=== PATIENT | male | born 1940 | race Caucasian/White ===

== ENCOUNTER 2017-10-20 20:17 | Inpatient (IN) | payer OTHER ==
--- NOTE | 2017-10-20 20:21 | EDPHY ---
HPI/HX/ROS/PE/MDM Narrative: CHIEF COMPLAINT: HISTORY OF PRESENT ILLNESS: The patient is a 77 y/o male arriving via EMS complaining of nausea an vomiting [No fever, chills, chest pain, shortness of breath, palpitations, vomiting, diarrhea, urinary complaints, headache, lightheadedness. ] REVIEW OF SYSTEMS: Aside from elements discussed in the HPI, a comprehensive 10-point review of systems was reviewed and is negative. PAST MEDICAL HISTORY: SOCIAL HISTORY: , lives in [place], retired VITAL SIGNS: Reviewed by me GENERAL: Well-developed, well-nourished, resting comfortably in no respiratory distress. HEENT: Atraumatic. Eyes: No icterus, no injection. Mouth: moist mucous membranes. No erythema or lesions. Neck: supple with no adenopathy. LUNGS: Clear to auscultation bilaterally, no wheezes, rhonchi or rales. CARDIAC: Regular rate and rhythm, no rubs, murmurs or gallops. ABDOMEN: Soft, nontender, nondistended, bowel sounds normal. BACK: No CVA tenderness. EXTREMITIES: No trauma. No edema. Range of motion is normal throughout. NEURO: Alert and oriented, grossly nonfocal. SKIN: Warm and dry, no rash. PSYCHIATRIC: Normal mentation, no agitation. Portions of this note were transcribed by a medical dir. I personally performed a history, physical exam, medical decision making, and confirmed accuracy of information the transcribed note. General Time Seen by Provider: 10/20/17 20:20 Allergies/Adverse Reactions: Sulfa (Sulfonamide Antibiotics) Allergy (Verified 06/19/13 19:09) Home Medications: Medication Instructions Recorded Ascorbic Acid [Vitamin C 500 mg 500 mg PO DAILY 06/20/13 (OTC)] Aspirin [Aspirin 325 mg (OTC)] 325 mg PO DAILY 06/20/13 Atorvastatin Calcium [Lipitor 10 10 mg PO DAILY 06/20/13 mg (RX)] Cyanocobalamin [Vitamin B12 1000 2,500 mcg PO DAILY 06/20/13 MCG (OTC)] Donepezil HCl [Aricept 5 MG (RX)] 5 mg PO DAILY 06/20/13 ESOMEPRAZOLE MAG TRIHYDRATE 40 mg PO DAILY 06/20/13 [NEXIUM] Ferrous Sulfate [Ferrous Sulf 325 325 mg PO DAILY 06/20/13 MG (OTC)] Herbals/Supplements -Info Only 1 each PO AD 06/20/13 Pioglitazone HCl [Actos] 45 mg PO DAILY 06/20/13 Ramipril [Altace 2.5mg (RX)] 2.5 mg PO DAILY 06/20/13 Vitamin E [Vitamin E 400 units 400 unit PO DAILY 06/20/13 (OTC)] sitaGLIPtin PHOSPHATE [Januvia 100 100 mg PO DAILY 06/20/13 MG (RX)] Departure - Departure Referrals: Patient,NotPresent [Primary Care Provider] - As per Instructions Report Scribed for: Allison Juárez Report Scribed by: Vero Ojeda Date of Report: 10/20/17 Time of Report: 20:21
[2017-10-20] MEDS ORDERED: NS 1,000 ML IV ONE (20:24)
[2017-10-20] MEDS ORDERED: ONDANSETRON 4 MG/2 ML VIAL IVP ONE (20:24)
--- NOTE | 2017-10-20 20:26 | EDPHY ---
HPI/HX/ROS/PE/MDM Narrative: CHIEF COMPLAINT: Nausea, vomiting, altered mental status HISTORY OF PRESENT ILLNESS: The patient is a 77 y/o male arriving via EMS for nausea, vomiting, and altered mental status. Around 4-5 days ago he began to fall several times. After one of the falls he had an increased urgency to urinate. Denies hitting his head when falling. Yesterday he had an episode of chills and began vomiting. Tonight he had a similar episode and his was unable to get the patient into bed so she called 911. Per his and EMS the patient recently began to hallucinate where he started seeing numbers. This is the first time he has hallucinated. Currently he is feeling good but is complaining of painful urination with blood in his urine. Denies taking Aspirin as prescribed. Denies history of PR or cardiac stents. No chest pain, shortness of breath, palpitations, diarrhea, headache, lightheadedness. REVIEW OF SYSTEMS: Aside from elements discussed in the HPI, a comprehensive 10-point review of systems was reviewed and is negative. PAST MEDICAL HISTORY: Pre-diabetic, GERD, multiple orthopedic surgeries including on his wrist and right leg. Hx of MRSA 6 yr ago. SOCIAL HISTORY: at bedside, live in [place], retired publications manager from [employer] VITAL SIGNS: Temperature: 38.3 degrees, other reviewed by me GENERAL: Ketotic breath, well-developed, well-nourished, resting comfortably in no respiratory distress. HEENT: Atraumatic. Eyes: No icterus, no injection. Mouth: dry mucous membranes. No erythema or lesions. Neck: supple with no adenopathy. LUNGS: Clear to auscultation bilaterally, no wheezes, rhonchi or rales. CARDIAC: Regular rate and rhythm, no rubs, murmurs or gallops. ABDOMEN: Soft, nontender, nondistended, bowel sounds normal. BACK: No CVA tenderness. EXTREMITIES: Chronic deformities of right lower extremity due to surgery with chronic pedal edema. No trauma. Range of motion is normal throughout. NEURO: Alert and oriented, grossly nonfocal. SKIN: Warm and dry, no rash. PSYCHIATRIC: Normal mentation, no agitation. Portions of this note were transcribed by a diploma medical assistant. I personally performed a history, physical exam, medical decision making, and confirmed accuracy of information the transcribed note. ED Course: The patient is a 77 y/o male arriving via EMS for nausea, vomiting, and altered mental status since last night. He also presents with dysuria and hematuria. On exam he has dry mucous membranes. Labs and EKG ordered. 1L IV NS, 1gm PO Tylenol , and 4mg IV Zofran given. I have discussed with the patient and his that the patient will most likely need to be admitted, which they are comfortable with. 2030: 12-LEAD EKG: Please see the full report in [facility]. My interpretation: Normal sinus rhythm with a rate of 88 Laboratory evaluation consistent with urinary tract infection and urosepsis. Patient has a white count of 3.4, urinalysis demonstrating 50-182 red cells and 50-182 white cells per high-power field with positive leukocyte esterase and positive nitrates. Electrolyte evaluation is largely unremarkable. Lactic acid 2.0 Sepsis Evaluation Note: The patient presents to the ED with potential infection identified as urinary tract infection. The patient did have evidence of sepsis with temperature greater than 38 degree Celsius, and WBC less than 3000. Patient did not have evidence of severe sepsis. He received 1 g of ceftriaxone in the emergency department. MDM: Differential diagnosis for fever in adults was considered including but not limited to pneumonia, urinary tract infection, viral syndrome, and influenza. - Data Points Laboratory Results: Laboratory Results 10/20/17 20:20 10/20/17 20:20 10/20/17 10/20/17 10/20/17 20:38 20:26 20:20 WBC RBC Hgb Hct MCV MCH MCHC RDW Plt Count MPV Neut % (Auto) Lymph % (Auto) [place] % (Auto) Eos % (Auto) Baso % (Auto) Nucleat RBC Rel Count Absolute Neuts (auto) Absolute Lymphs (auto) Absolute Monos (auto) Absolute Eos (auto) Absolute Basos (auto) Absolute Nucleated RBC Immature Gran % Seg Neutrophils % Band Neutrophils % Lymphocytes % Monocytes % Eosinophils % Immature Gran # Absolute Seg Neuts Absolute Band Neuts Absolute Lymphocytes Absolute Monocytes Absolute Eosinophils Platelet Estimate Giant Platelets PT INR APTT VBG Lactic Acid 2.0 mmol/L mmol/L (0.7-2.1) Sodium 143 mEq/L mEq/L (135-145) Potassium 3.5 mEq/L mEq/L (3.5-5.2) Chloride 103 mEq/L mEq/L (97-110) Carbon Dioxide 25 mEq/l mEq/l (22-31) Anion Gap 15 mEq/L mEq/L (8-16) BUN 22 mg/dL mg/dL (7-23) Creatinine 1.1 mg/dL mg/dL (0.7-1.3) Estimated GFR > 60 Glucose 185 mg/dL H mg/dL (70-100) Calcium 9.4 mg/dL mg/dL (8.5-10.4) Total Bilirubin 1.9 mg/dL H mg/dL (0.1-1.4) Conjugated Bilirubin 0.8 mg/dL H mg/dL (0.0-0.5) Unconjugated Bilirubin 1.1 mg/dL mg/dL (0.0-1.1) AST 27 IU/L IU/L (17-59) ALT 32 IU/L IU/L (21-72) Alkaline Phosphatase 104 IU/L IU/L (38-126) Total Protein 6.0 g/dL L g/dL (6.3-8.2) Albumin 3.8 g/dL g/dL (3.5-5.0) Lipase 57 IU/L IU/L (23-300) Urine Color YELLOW Urine Appearance HAZY Urine pH 5.0 (5.0-7.5) Ur Specific [place] 1.012 (1.002-1.030) Urine Protein 1+ H (NEGATIVE) Urine Ketones NEGATIVE (NEGATIVE) Urine Blood 3+ H (NEGATIVE) Urine Nitrate POSITIVE H (NEGATIVE) Urine Bilirubin NEGATIVE (NEGATIVE) Urine Urobilinogen 4.0 EU H EU (0.2-1.0) Ur Leukocyte Esterase 1+ H (NEGATIVE) Urine RBC 50-182 /hpf H /hpf (0-3) Urine WBC 50-182 /hpf H /hpf (0-3) Ur Epithelial Cells TRACE /lpf /lpf (NONE-1+) Urine Bacteria 2+ /hpf H /hpf (NONE SEEN) Urine Mucus TRACE /lpf /lpf (NONE-1+) Urine Glucose NEGATIVE (NEGATIVE) 10/20/17 10/20/17 20:20 20:20 WBC 3.46 10^3/uL L 10^3/uL (3.80-9.50) RBC 4.95 10^6/uL 10^6/uL (4.40-6.38) Hgb 15.0 g/dL g/dL (13.7-17.5) Hct 41.9 % % (40.0-51.0) MCV 84.6 fL fL (81.5-99.8) MCH 30.3 pg pg (27.9-34.1) MCHC 35.8 g/dL g/dL (32.4-36.7) RDW 13.6 % % (11.5-15.2) Plt Count 138 10^3/uL L 10^3/uL (150-400) MPV 9.8 fL fL (8.7-11.7) Neut % (Auto) 96.2 % H % (39.3-74.2) Lymph % (Auto) 2.0 % L % (15.0-45.0) [place] % (Auto) 0.0 % L % (4.5-13.0) Eos % (Auto) 0.6 % % (0.6-7.6) Baso % (Auto) 0.6 % % (0.3-1.7) Nucleat RBC Rel Count 0.0 % % (0.0-0.2) Absolute Neuts (auto) 3.33 10^3/uL 10^3/uL (1.70-6.50) Absolute Lymphs (auto) 0.07 10^3/uL L 10^3/uL (1.00-3.00) Absolute Monos (auto) 0.00 10^3/uL L 10^3/uL (0.30-0.80) Absolute Eos (auto) 0.02 10^3/uL L 10^3/uL (0.03-0.40) Absolute Basos (auto) 0.02 10^3/uL 10^3/uL (0.02-0.10) Absolute Nucleated RBC 0.00 10^3/uL 10^3/uL (0-0.01) Immature Gran % 0.6 % % (0.0-1.1) Seg Neutrophils % 44 % % Band Neutrophils % 42 % % Lymphocytes % 6 % % Monocytes % 7 % % Eosinophils % 1 % % Immature Gran # 0.02 10^3/uL 10^3/uL (0.00-0.10) Absolute Seg Neuts 1.52 10^/uL L 10^/uL (1.70-6.50) Absolute Band Neuts 1.45 10^3/uL H 10^3/uL (0.00-0.70) Absolute Lymphocytes 0.21 10^3/uL L 10^3/uL (1.00-3.00) Absolute Monocytes 0.24 10^3/uL L 10^3/uL (0.30-0.80) Absolute Eosinophils 0.03 10^3/uL 10^3/uL (0.03-0.40) Platelet Estimate ADEQUATE (ADEQ) Giant Platelets PRESENT H PT 14.2 SEC SEC (12.0-15.0) INR 1.08 (0.83-1.16) APTT 21.3 SEC L SEC (23.0-38.0) VBG Lactic Acid Sodium Potassium Chloride Carbon Dioxide Anion Gap BUN Creatinine Estimated GFR Glucose Calcium Total Bilirubin Conjugated Bilirubin Unconjugated Bilirubin AST ALT Alkaline Phosphatase Total Protein Albumin Lipase Urine Color Urine Appearance Urine pH Ur Specific [place] Urine Protein Urine Ketones Urine Blood Urine Nitrate Urine Bilirubin Urine Urobilinogen Ur Leukocyte Esterase Urine RBC Urine WBC Ur Epithelial Cells Urine Bacteria Urine Mucus Urine Glucose Medications Given: Sodium Chloride (Ns) 2,200 mls @ 366.6666 mls/hr 30 ml/kg infuse over 6 hr ( 2200 ml) IV EDNOW ONE PRN Reason: Protocol Stop: 10/21/17 02:48 Last Admin: 10/20/17 20:59 Dose: 2,200 mls Discontinued Medications Acetaminophen (Tylenol) 1,000 mg PO EDNOW ONE Stop: 10/20/17 20:36 Last Admin: 10/20/17 20:38 Dose: 1,000 mg Sodium Chloride (Ns) 1,000 mls @ 0 mls/hr IV ONCE ONE; Wide Open PRN Reason: Protocol Stop: 10/20/17 20:25 Last Admin: 10/20/17 20:35 Dose: 1,000 mls Ceftriaxone Sodium/Dextrose (Rocephin 1 Gm (Premix)) 50 mls @ 100 mls/hr IV EDNOW ONE PRN Reason: Protocol Stop: 10/20/17 21:18 Last Admin: 10/20/17 21:00 Dose: 50 mls Ondansetron HCl (Zofran) 4 mg IVP EDNOW ONE Stop: 10/20/17 20:25 Last Admin: 10/20/17 20:36 Dose: 4 mg General Time Seen by Provider: 10/20/17 20:20 Initial Vital Signs: Initial Vital Signs Temperature (C) 38.3 C 10/20/17 20:28 Heart Rate 89 10/20/17 20:28 Respiratory Rate 16 10/20/17 20:28 Blood Pressure 122/77 H 10/20/17 20:28 O2 Sat (%) 87 L 10/20/17 20:28 O2 Delivery Mode Room Air O2 (L/minute) 2 Allergies/Adverse Reactions: Sulfa (Sulfonamide Antibiotics) Allergy (Verified 06/19/13 19:09) Home Medications: Medication Instructions Recorded Ascorbic Acid [Vitamin C 500 mg 500 mg PO DAILY 06/20/13 (OTC)] Aspirin [Aspirin 325 mg (OTC)] 325 mg PO DAILY 06/20/13 Atorvastatin Calcium [Lipitor 10 10 mg PO DAILY 06/20/13 mg (RX)] Cyanocobalamin [Vitamin B12 1000 2,500 mcg PO DAILY 06/20/13 MCG (OTC)] Donepezil HCl [Aricept 5 MG (RX)] 5 mg PO DAILY 06/20/13 ESOMEPRAZOLE MAG TRIHYDRATE 40 mg PO DAILY 06/20/13 [NEXIUM] Ferrous Sulfate [Ferrous Sulf 325 325 mg PO DAILY 06/20/13 MG (OTC)] Herbals/Supplements -Info Only 1 each PO AD 06/20/13 Pioglitazone HCl [Actos] 45 mg PO DAILY 06/20/13 Ramipril [Altace 2.5mg (RX)] 2.5 mg PO DAILY 06/20/13 Vitamin E [Vitamin E 400 units 400 unit PO DAILY 06/20/13 (OTC)] sitaGLIPtin PHOSPHATE [Januvia 100 100 mg PO DAILY 06/20/13 MG (RX)] Departure - Departure Disposition: [facility] In[facility] Acute Clinical Impression: UTI (urinary tract infection) Qualifiers: Urinary tract infection type: site unspecified Hematuria presence: with hematuria Qualified Code(s): N39.0 - Urinary tract infection, site not specified Altered mental status Qualifiers: Altered mental status type: unspecified Qualified Code(s): R41.82 - Altered mental status, unspecified Condition: Fair Report Scribed for: Allison Juárez Report Scribed by: Vero Ojeda Date of Report: 10/20/17 Time of Report: 20:26
[2017-10-20 20:32] LABS: PLATELET COUNT 138 10^3/uL (150-400)
--- NOTE | 2017-10-20 20:33 | CPEKG ---
Heart Rate: 88 RR Interval: 682 P-R Interval: 144 QRSD Interval: 80 QT Interval: 328 QTC Interval: 397 P Mayo: 78 QRS Mayo: 3 T Wave Mayo: 37 EKG Severity - OTHERWISE NORMAL ECG - EKG Impression: SINUS RHYTHM EKG Impression: ATRIAL PREMATURE COMPLEX Electronically Signed By: Rajinder Thompson 20-Oct-2017 21:13:07
[2017-10-20] MEDS ORDERED: ACETAMINOPHEN 500 MG TAB PO ONE (20:35)
[2017-10-20 20:38] LABS: INR 1.08 (0.83-1.16); PROTIME(PATIENT) 14.2 SEC (12.0-15.0)
[2017-10-20] MEDS ORDERED: NS 2,200 ML IV ONE (20:49)
[2017-10-20] MEDS ORDERED: ONDANSETRON 4 MG/2 ML VIAL IVP PRN (23:05)
[2017-10-20] MEDS ORDERED: ACETAMINOPHEN 325 MG TAB PO PRN (23:05)
[2017-10-20] MEDS ORDERED: NS 1,000 ML IV SCH (23:15)
[2017-10-21 05:26] LABS: PLATELET COUNT 114 10^3/uL (150-400)
--- NOTE | 2017-10-21 06:04 | GHP ---
[f rep st] HISTORY AND PHYSICAL DATE OF ADMISSION: 10/20/2017 SOURCE: Patient provides history. He was initially encephalopathic and does not recall too much of events leading up to his hospital stay. EMR was reviewed and case was discussed with albert garay. CHIEF COMPLAINT: Confusion, altered mental status. HISTORY OF PRESENT ILLNESS: This is a very pleasant 77-year-old gentleman with past medical history significant for prediabetes, hyperlipidemia, GERD, some memory deficits, MRSA in 2010 and history of coronary artery disease status post stenting, who presents to the emergency department today with acu te onset of confusion. The patient was reported to have a fall approximately 4-5 days ago where he d id not have any head injury or loss of consciousness. The patient has since that time complained of some urgency along with dysuria and possibly some hematuria. At time of my interview patient denies, however. He does endorse some chills and some vomiting. He was also noted to have hallucinations p rior to his arrival in the emergency department. At time of my interview, patient without any active complaints. He was resting quietly and was desirous to go back to bed. REVIEW OF SYSTEMS: GENERAL: Patient denies any fevers. Positive chills today. SKIN: No rashes or sores. ENT: No congestion or sore throat. EYES: Patient denies any acute changes in vision or oc ular pain. CV: Denies any chest pain or palpitations. RESPIRATORY: No shortness of breath or coug h. GI: Positive for nausea and vomiting. No hematemesis. Patient denies any abdominal pain. No d iarrhea, melena, or hematochezia. GI: See HPI. MUSCULOSKELETAL: Patient denies any myalgias or ac carlos joint pain. NEURO: Patient denies any headache. No numbness, tingling, or focal deficits at th is time. PSYCH: Patient's thought process, content and questions at time of my interview are appropr iate. He is awake, alert, and oriented x4. ALLERGIES: Sulfa. HOME MEDICATIONS: Meclizine 25 mg p.o. daily, vitamin D3 5000 units p.o. daily, magnesium oxide 400 mg p.o. b.i.d., multivitamin 1 tab p.o. daily, Trulicity 1.5 subcu on Tuesday, metformin 1000 mg p.o. b.i.d., Zetia 110 mg p.o. daily, donepezil 5 mg p.o. daily, ferrous sulfate 325 mg p.o. daily, esomep razole 40 mg p.o. daily, vitamin B12 25 mcg p.o. daily, atorvastatin 10 mg p.o. daily, Januvia 100 mg p.o. daily, ramipril 2.5 mg p.o. daily, pioglitazone 45 mg p.o. daily, ascorbic acid 500 mg p.o. cat ly. PAST MEDICAL HISTORY: Significant for prediabetes, hypertension, hyperlipidemia, GERD, dementia, MRS A in 2010, CAD with history of stenting. PAST SURGICAL HISTORY: Significant for orthopedic surgeries, multiple including wrist and leg, cardi ac cath with stents. FAMILY HISTORY: Negative for CAD, hypertension, or urologic issues. SOCIAL HISTORY: Patient is . He is retired from [employer]. He does not smoke, drink, or do drugs. CODE STATUS: Full. PHYSICAL EXAM: VITAL SIGNS: Upon arrival to the emergency department, blood pressure 122/77, heart rate 89, respiratory rate 16, O2 saturation 87% on room air with temperature 38.3. Vitals currently, blood pressure is 91/54, heart rate 66, respiratory rate 16, O2 saturation 95% on 2 L by nasal cannu la, temperature 36.7. GENERAL: No acute distress. Pleasant, elderly, frail gentleman is lying quie tly in bed, interactive and agreeable. HEAD: Normocephalic, atraumatic. EYES: Extraocular muscles are intact. Pupils equal, round, react to light bilaterally and symmetric. No scleral icterus or c onjunctival injection. ENT: Mucous membranes are slightly tacky. No oropharyngeal erythema or exud ates. NECK: Supple. Trachea midline. CV: Regular rate and rhythm. Slightly bradycardic, limited heart sounds, but otherwise regular. RESPIRATORY: Lungs clear to auscultation bilaterally. No whe ezes, rales, or rhonchi. ABDOMEN: Positive bowel sounds. Soft, nontender to palpation. No rebound , guarding or masses. : No suprapubic tenderness to palpation. No Sosa catheter in place. MUSC ULOSKELETAL: Strength grossly intact. Moves all extremities while lying in bed. NEURO: Grossly no nfocal. No facial drooping. Cranial nerves intact. The patient moves all extremities. PSYCH: Tho ught process, content and questions at this time are appropriate. Patient is currently awake, alert, and oriented x4. Although he cannot recall the events leading up to the hospital stay, he is aware of why he is here. LABORATORY STUDIES: WBC 3.46, H and H 15.0 and 41.9, MCV 84.6, platelet count is 138, no bands. Pat ient with left shift and neutrophil count to 96.2. PT is 14.2, INR 1.08, PTT is 21.3. VBG: Lactic acid 2.0. Repeat is 1.3. Sodium is 143, potassium 3.5, chloride 103, CO2 is 25, anion gap 15, BUN 2 2, creatinine is 1.1, GFR greater than 60, glucose 185, calcium 9.4, total bilirubin is 1.9, conjugat ed 0.8, ALT 32, AST is 29, alk phos 104, total protein 6.0, albumin is 3.8, and lipase is 57. UA: Specific gravity of 1.012, with a pH of 5.0, protein 1+, ketones negative, blood 3+, positive ni trites, negative bilirubin, 4.0 urobilinogen, leuk esterase 1+, RBCs is 50-182. WBCs 50-182, uroepit helial trace cells, bacteria 2+, mucus trace, and glucose is negative. Chest x-ray: Image reviewed myself. Left lower lobe patchy infiltrate. Heart size, pulmonary vascu lature normal. No adenopathy or mass lesion. No pleural effusion. Bones are unremarkable for age. EKG reviewed myself showing sinus rhythm in the 80s. No acute ST changes. Q-wave in leads III, mini mal ST depression in V4. PACs present. QTc is 397. ASSESSMENT AND PLAN: This is a pleasant 77-year-old gentleman who presents to the emergency departme with acute confusion. 1. Infectious encephalopathy related to patient's urinary tract infection. He is meeting sepsis cri teria with tachycardia, fever, leukopenia and patient also initially with some hypoxia that appears t o have resolved. Blood pressure is also soft. Continue with IV fluids. Blood cultures are pending. Patient has been started on Rocephin, which we will plan to continue pending urine culture. 2. Urinary tract infection as above. 3. Sepsis. Patient without severe sepsis or septic shock. Blood pressures are slightly down trendi ng. Will plan to continue to monitor. Patient is asymptomatic. 4. Thrombocytopenia, likely slightly decreased in the setting of acute illness. 5. Lactic acidosis minimally elevated at 2.0, is now down trended to 1.3 following fluids. 6. Diabetes type 2 with elevated blood sugars at 180s at this time. Will hold off on his home medic ations and place patient on low-dose sliding scale. 7. Hyperlipidemia. Resume patient's statin. 8. Gastroesophageal reflux disease. Continue proton pump inhibitors. 9. History of dementia. Patient currently oriented x4. Will plan to resume his home donepezil. 10. History of coronary artery disease and stenting. Continue CARLOTA and statin. 11. Fluid, electrolyte, nutrition. Intravenous fluids for supportive care at this time. Advance di et as tolerated. Electrolyte monitoring replacement if needed. 12. Prophylaxis. Sequential compression devices and Lovenox. 13. Cor status is full. DISPOSITION: Patient has been admitted to inpatient status on the medical floor for potential of pat iealexandru's sepsis converting into severe sepsis or septic shock. His lactate is downtrending. He is rec eiving IV fluids, he got antibiotics, cultures, which are all pending. We will plan to continue his Rocephin. Anticipate greater than 2 midnight stay. /[id number]/MODL
--- NOTE | 2017-10-21 07:58 | PDMN ---
Medical Necessity Medical necessity: Pt meets IP criteria per MD; est los >2 mn for eval/tx of potential severe sepsis/septic shock r/t UTI; admit for further workup/ monitoring, IVFs & IV abx; hx dementia, CAD w/stenting, diabetes, HTN; per H&P & order 10/20/17
--- NOTE | 2017-10-21 09:08 | HOSPPROG ---
Hospitalist Progress Note Assessment/Plan: Sepsis secondary to E coli bacteremia from UTI source - Initial sepsis criteria fever, tachycardia, wbc <4. WBC's up to 13 today, likely mounting a better immune response. BP a bit soft, but he notes baseline SBP is ~100's. -E coli on BCx's, await final ID and sensitivities -Cont IV Ceftriaxone -Cont IVF's, monitor BP closely -ID will consult Acute encephalopathy - seems back to baseline Dementia - cont Aricept DM - bg's 100's. Hold oral hypoglycemics, SSI for now Hypertension - hold ramipril given low BP's, resume as clinically indicated CAD with h/o stents - no CP, stable. Cont statin, consider addition of ASA 81 mg, unclear why he isn't on ASA. Gerd - cont PPI Full code DVT PPLX - Lovenox Dispo - cont inpt Subjective: Pt feels much better this am. Denies fevers/chills/rigors. Eating and drinking. No CP or SOB. Still noting some dysuria. No abdominal pain, N/ V. Objective: Vital Signs Temp Pulse Resp BP Pulse Ox 36.7 C 62 16 92/59 L 96 10/21/17 07:56 10/21/17 07:56 10/21/17 07:56 10/21/17 08:49 10/21/17 07:56 Laboratory Results 10/21/17 04:36 10/21/17 04:36 10/20/17 10/21/17 10/22/17 05:59 05:59 05:59 Intake Total 2350 Output Total 200 Balance 2150 PT 14.2 SEC (12.0-15.0) 10/20/17 20:20 INR 1.08 (0.83-1.16) 10/20/17 20:20 - Physical Exam Constitutional: no apparent distress Eyes: PERRL Ears, Nose, Mouth, Throat: moist mucous membranes Cardiovascular: regular rate and rhythym Respiratory: no respiratory distress, clear to auscultation Gastrointestinal: normoactive bowel sounds, soft, non-tender abdomen Skin: warm Musculoskeletal: full muscle strength Neurologic: AAOx3 Psychiatric: interacting appropriately ICD10 Worksheet Patient Problems: Problems Problem Status Onset Altered mental status Acute UTI (urinary tract infection) Acute Compression fracture of T12 vertebra Acute Low back pain Acute
[2017-10-21] MEDS: ENOXAPARIN 40 MG/0.4 ML SYR SC SCH (09:16)
[2017-10-21] MEDS ORDERED: D50W 25 GM/50 ML SYR IVP PRN (09:20)
[2017-10-21] MEDS ORDERED: MAGNESIUM SULF 1 GM/DEXTROSE 100 ML IV ONE (09:24)
[2017-10-21] MEDS: DONEPEZIL HCL 5 MG TAB PO SCH (11:03)
[2017-10-21] MEDS: ATORVASTATIN CALCIUM 10 MG TAB PO SCH (11:03)
[2017-10-21] MEDS: CYANO/VITAMIN B12 1000 MCG TAB PO SCH (11:03)
[2017-10-21] MEDS: CHOLECALCIFEROL VIT D3 1,000 UNITS TAB PO SCH (11:04)
[2017-10-21] MEDS: EZETIMIBE 10 MG TAB PO SCH (11:19)
[2017-10-21] MEDS: FERROUS SULFATE 325 MG TAB PO SCH (11:19)
[2017-10-21] MEDS: cefTRIAXone 2 GM in STERILE WATER INJ 20 ML IV SCH (12:28)
--- NOTE | 2017-10-21 12:41 | GCON ---
[f rep st] CONSULTATION INFECTIOUS DISEASE CONSULTATION DATE OF CONSULTATION: 10/21/2017 REFERRING PHYSICIAN: Mallory Moore MD REASON FOR CONSULTATION: Sepsis due to E coli bacteremia. HISTORY OF PRESENT ILLNESS: Patient is a 77-year-old male with a past medical history of prediabetes , who I am asked to see in consultation for sepsis due to E coli bacteremia. Patient describes havin g a fall preceding his admission, associated with a sense of dizziness. He described the fall occurr ing at nighttime in his bedroom and breaking his closet door. Subsequently, he noted dysuria, urgenc y, and frequency. This was followed by confusion. He did not note any preceding fevers or chills. Patient describes having episodic vomiting on a weekly basis for the last 2 months. He also does deon cribes intermittent diarrhea but not on a daily basis. He denies suprapubic pain or flank pain. The re is no prior history of kidney stones. At the time of presentation, patient had bandemia with a te mperature of 39.3 noted. Blood cultures were obtained and 2 of 2 sets are showing growth of E coli. Patient has been treated with IV ceftriaxone. Given the above findings, I am now asked to assist in his ongoing management. PAST MEDICAL HISTORY: Septic prepatellar bursitis due to MRSA in 2007, prediabetes, hypertension, hy perlipidemia, gastroesophageal reflux, dementia, coronary artery disease with prior stenting. PAST SURGICAL HISTORY: Multiple orthopedic surgeries. CURRENT MEDICATIONS: Ceftriaxone x1 in the emergency department, Lipitor 10 mg p.o. daily, vitamin D 5000 units p.o. daily, Aricept 5 mg p.o. daily, Lovenox 40 mg subcu daily, Zetia 10 mg p.o. daily, f errous sulfate 325 mg p.o. daily, Protonix 40 mg p.o. daily. ALLERGIES: Sulfonamides with unclear reaction. SOCIAL HISTORY: Patient does not smoke or drink alcohol. Pet dog at home. No recent travel. FAMILY HISTORY: Mother of heart problem, not further clarified. REVIEW OF SYSTEMS: Outside that noted in the HPI, remainder of 10-system review is unremarkable. PHYSICAL EXAMINATION: VITAL SIGNS: Temperature maximum 39.3, temperature current 36.7, heart rate 6 2, respiratory rate 16, blood pressure 92/59, oxygen saturation 96% on 2 L. GENERAL: Patient is wel l nourished, well developed, in no acute distress. He appears nontoxic. HEENT: There is no scleral icterus, conjunctival injection, or conjunctival petechiae. Oropharynx shows moist mucous membranes . There is no nasal discharge. There is no tenderness over the sinuses. NECK: Supple without palp able lymphadenopathy or thyromegaly. CHEST: Clear to auscultation bilaterally without adventitious sounds. The respiratory effort is normal. CARDIOVASCULAR: Regular rate and rhythm without murmurs, gallops, rubs. ABDOMEN: Soft, nontender, nondistended. There is no palpable organomegaly. Bowel sounds are present. BACK: There is no CVA tenderness. MUSCULOSKELETAL: There is 1+ ankle edema on the right. There is no cyanosis or clubbing. SKIN: No rashes noted. No stigmata of endocarditis. Warm and dry to touch. : There is no testicular tenderness. LYMPHATICS: No cervical or suprac lavicular nodes palpable. NEUROLOGIC: Patient is alert and interacts appropriately with examiner. Cranial nerves 2-12 are grossly intact. Sensation is grossly intact. Muscle tone and bulk are sweetie l. LABORATORY DATA: White blood cell count 13.3, hematocrit 34.2, platelets 114, neutrophils 55%, bands 40%. Serum creatinine 0.9, serum bicarbonate 24, AST 27, ALT 32, bilirubin 1.9, alkaline phosphatas e 104. INR is 1.08. Venous lactate 1.3. Urinalysis shows 50-182 red blood cells and white blood cells with 2+ bacteria. Blood cultures x2 se ts showing E coli. Chest x-ray shows possible small left lower lobe infiltrate. IMPRESSION: Sepsis due to Escherichia coli bacteremia: Based on presentation, urinary symptoms, and urinalysis findings, this is likely of urinary etiology. No significant risk factors for extended s pectrum beta-lactamases present at time of presentation. Patient is clinically improved with antibio tic therapy. Suspect increasing white blood cell count is a positive finding, given relative leukope han at time of presentation. RECOMMENDATIONS: 1. Agree with continued ceftriaxone. 2. Follow up susceptibility as available. 3. Follow clinical response to above measures. Thank you for this consultation. We will continue to follow patient with you. /[id number]/MODL
[2017-10-21] MEDS: INSULIN LISPRO 100 UNIT/ML SC SCH ×3 (13:48→21:59)
--- NOTE | 2017-10-21 14:38 | ASMTCMCOM ---
CM Note CM Note Notes: Spoke w/RN, pt lives with his , he has mild dementia. Has otherwise been independent with ADLs but presently has vertigo. RN to put in PT JEROME payan w/f. DC Plan: TBD Date Signed: 10/21/2017 02:37 PM Electronically Signed By:Antoinette Valentin RN
[2017-10-21] MEDS: MAGNESIUM OXIDE 400 MG TAB PO SCH (21:48)
[2017-10-21] MEDS: POTASSIUM Cl (KCl) 20 MEQ in 1/2 NS 1,000 ML IV SCH (23:11)
[2017-10-22 05:24] LABS: PLATELET COUNT 114 10^3/uL (150-400)
[2017-10-22] MEDS: DONEPEZIL HCL 5 MG TAB PO SCH (08:12)
[2017-10-22] MEDS: EZETIMIBE 10 MG TAB PO SCH (08:13)
[2017-10-22] MEDS: MAGNESIUM OXIDE 400 MG TAB PO SCH ×2 (08:13→20:38)
[2017-10-22] MEDS: FERROUS SULFATE 325 MG TAB PO SCH (08:13)
[2017-10-22] MEDS: ATORVASTATIN CALCIUM 10 MG TAB PO SCH (08:13)
[2017-10-22] MEDS: PANTOPRAZOLE SODIUM 40 MG TAB PO SCH (08:13)
[2017-10-22] MEDS: CYANO/VITAMIN B12 1000 MCG TAB PO SCH (08:14)
[2017-10-22] MEDS: ENOXAPARIN 40 MG/0.4 ML SYR SC SCH (08:14)
[2017-10-22] MEDS: CHOLECALCIFEROL VIT D3 1,000 UNITS TAB PO SCH (08:14)
[2017-10-22] MEDS: INSULIN LISPRO 100 UNIT/ML SC SCH ×4 (08:21→20:39)
[2017-10-22] MEDS: cefTRIAXone 2 GM in STERILE WATER INJ 20 ML IV SCH (08:47)
[2017-10-22] MEDS: POTASSIUM Cl (KCl) 20 MEQ in 1/2 NS 1,000 ML IV SCH (09:30)
[2017-10-22] MEDS ORDERED: NS 1,000 ML IV SCH (09:45)
--- NOTE | 2017-10-22 10:51 | PCMIDPN ---
Assessment/Plan: Assessment/Plan: * Sepsis due to E coli bacteremia of urinary etiology: Significant clinical improvement. Susceptibility profile of E coli will not be available until tomorrow. Will continue ceftriaxone with hopes to transition to oral fluoroquinolone if isolate is susceptible tomorrow. Clinical findings and plan discussed with patient, family and Dr. Lima. Time spent, 25 min, of which greater than half was spent in education/counseling /coordination of care related to E coli bacteremia. 10/22/17 10:48 Subjective: Patient feels much better. Urinary symptoms have resolved. Tolerating oral intake well. Objective: Vital Signs Temp Pulse Resp BP Pulse Ox 36.8 C 65 16 107/66 92 10/22/17 07:05 10/22/17 09:02 10/22/17 03:12 10/22/17 07:05 10/22/17 09:02 Laboratory Results 10/22/17 04:36 10/22/17 04:36 10/21/17 10/22/17 10/23/17 05:59 05:59 05:59 Intake Total 2350 2704 Output Total 200 850 150 Balance 2150 1854 -150 Ceftriaxone # 3 Blood cultures 2/2 E coli with susceptibility profile pending - Physical Exam General Appearance: alert, no apparent distress EENT: No scleral icterus, No thrush Respiratory: lungs clear, No respiratory distress Cardiac/Chest: regular rate, rhythm Abdomen: non-tender, No distended Back: No CVA tenderness ICD10 Worksheet Patient Problems: Problems Problem Status Onset Altered mental status Acute UTI (urinary tract infection) Acute Compression fracture of T12 vertebra Acute Low back pain Acute
--- NOTE | 2017-10-22 15:45 | HOSPPROG ---
Hospitalist Progress Note Assessment/Plan: Subjective Follow-up on sepsis and urinary tract infection Patient states he is doing much better over the past days. He feels like he has lot of energy back. His was present at bedside today and I updated both the patient and his on overall clinical status. Reviewed case as well with Dr. Moncada with Infectious Disease. At this time awaiting for finalized culture results to help determine antibiotic therapy. Objective Vital signs as detailed below Physical exam General-patient appears comfortable he is awake alert conversant sitting in chair at the bedside no acute distress Heart-regular rate and rhythm no murmurs appreciated Lungs clear on auscultation normal respiratory effort Abdomen-soft nontender nondistended no tenderness with palpation at the suprapubic region -no Sosa catheter in place extremities Extremities-no significant pitting edema Labs as detailed below Assessment and plan 1. Sepsis-overall clinical picture is improving. White blood cell count has trended down from 13 to 11 today. Continue with antibiotics as recommended by Dr. Moncada. Will wait for final cultures and potentially will be able to transition to oral antibiotic therapy at that time. 2. Urinary tract infection patient has not had a history of recurrent urinary tract infections. We did discuss that if this trend did continue of having a urinary tract infections we may want to consider consultation with Urology but this is his 1st time having a urinary tract infection. 3. Encephalopathy-improved. He seems to be his baseline mental status at this point time. I suspect resolved. 4. Acute hypoxic respiratory failure-patient is needing small amount of oxygen. Will obtain chest x-ray for further evaluation. Wean as able. 5. Dementia-continue Aricept 6. -coronary artery disease-patient has a history of stent placement in the past. Continue statin therapy. He does not appear to be on aspirin therapy at the current time. 7. Hypertension-ramipril is currently on hold. I recommended we continue to hold for now. 8. Diabetes mellitus type 2-patient is currently on regular insulin sliding scale. Control uncertain. Will check a hemoglobin A1c with his morning labs. 9. Esophageal reflux-continue proton pump inhibitor. 10. DVT prophylaxis-Lovenox 11. Disposition-continue work with PT and OT. Likely will be stable enough for discharge back to home. We will need to confirm recommended antibiotic recommendation prior to discharging home. Objective: Vital Signs Temp Pulse Resp BP Pulse Ox 36.4 C 51 L 16 118/72 93 04/21/18 15:19 10/22/17 15:19 10/22/17 15:19 10/22/17 15:19 10/22/17 15:19 Laboratory Results 10/22/17 04:36 10/22/17 04:36 10/21/17 10/22/17 10/23/17 05:59 05:59 05:59 Intake Total 2350 2704 500 Output Total 200 850 275 Balance 2150 1854 225 PT 14.2 SEC (12.0-15.0) 10/20/17 20:20 INR 1.08 (0.83-1.16) 10/20/17 20:20 ICD10 Worksheet Patient Problems: Problems Problem Status Onset Altered mental status Acute UTI (urinary tract infection) Acute Compression fracture of T12 vertebra Acute Low back pain Acute
[2017-10-23 04:53] LABS: PLATELET COUNT 146 10^3/uL (150-400)
[2017-10-23] MEDS: INSULIN LISPRO 100 UNIT/ML SC SCH ×2 (07:35→12:06)
[2017-10-23] MEDS: cefTRIAXone 2 GM in STERILE WATER INJ 20 ML IV SCH (09:00)
[2017-10-23] MEDS: DONEPEZIL HCL 5 MG TAB PO SCH (09:01)
[2017-10-23] MEDS: CYANO/VITAMIN B12 1000 MCG TAB PO SCH (09:02)
[2017-10-23] MEDS: FERROUS SULFATE 325 MG TAB PO SCH (09:02)
[2017-10-23] MEDS: ATORVASTATIN CALCIUM 10 MG TAB PO SCH (09:02)
[2017-10-23] MEDS: PANTOPRAZOLE SODIUM 40 MG TAB PO SCH (09:02)
[2017-10-23] MEDS: EZETIMIBE 10 MG TAB PO SCH (09:02)
[2017-10-23] MEDS: MAGNESIUM OXIDE 400 MG TAB PO SCH (09:02)
[2017-10-23] MEDS: ENOXAPARIN 40 MG/0.4 ML SYR SC SCH (09:06)
[2017-10-23] MEDS: CHOLECALCIFEROL VIT D3 1,000 UNITS TAB PO SCH (09:06)
[2017-10-23 12:02] VITALS: BP 119/81
--- NOTE | 2017-10-23 13:19 | ASMTLACE ---
LACE Length of stay for Answers: 2 days current admission Acuity / Level of Answers: Yes Care: Did the patient have an inpatient admission? Comorbidities - select Answers: Coronary Artery Disease all that apply Dementia Other Notes: Pre-diabetic , GERD # of Emergency department Answers: 1-2 visits in the last 6 months Score: 12 Date Signed: 10/23/2017 01:18 PM Electronically Signed By:Irene Johnston
--- NOTE | 2017-10-23 13:27 | ASDISCHSUM ---
Discharge Information Plan Status:Home with No Needs Medically Cleared to Leave:10/23/2017 Discharge Date:10/23/2017 12:58 PM CM D/C Disposition:Home, Routine, Self-Care ADT D/C Disposition:Home, Routine, Self-Care Projected Discharge Date:10/23/2017 12:00 AM Transportation at D/C:Family Discharge Delay Reason: Follow-Up Date:10/23/2017 12:00 AM Discharge Slot:2 - 12:01 pm - 18:00 pm Final Diagnosis:Sepsis and UTI Placement Information Patient Contact Information Contact Name:NAUN Relationship: Address:[address] City:[place] Alternate Phone: [facility]/Zip Code:[place] [address] Email: Financial Information Financial Class:Medicare Primary Plan Desc:MEDICARE INPATIENT Primary Plan Number:[id number] Secondary Plan Desc:KELLY INDSAMUELNITY Secondary Plan Number:[id number] Assessment Information LACE LACE Length of stay for Answers: 2 days current admission Acuity / Level of Answers: Yes Care: Did the patient have an inpatient admission? Comorbidities - select Answers: Coronary Artery Disease all that apply Dementia Other Notes: Pre-diabetic , GERD # of Emergency department Answers: 1-2 visits in the last 6 months Score: 12 Date Signed: 10/23/2017 01:18 PM Electronically Signed By:Irene Johnston [facility] Progress Note CM Note CM Note Notes: Spoke w/RN, pt lives with his , he has mild dementia. Has otherwise been independent with ADLs but presently has vertigo. RN to put in PT JEROME payan w/f. DC Plan: TBD Date Signed: 10/21/2017 02:37 PM Electronically Signed By:Antoinette Valentin RN Case Management Discharge Plan Note Case Management Discharge Discharge Order Complete? Answers: Yes Patient to Obtain Answers: via Family Medications Transportation Arranged Answers: Family/Friends Discharge Comments Notes: CM consult with floor RN, patient is discharging independently with family support. Date Signed: 10/23/2017 01:20 PM Electronically Signed By:Irene Johnston Intervention Information
--- NOTE | 2017-10-23 13:38 | PCMIDPN ---
Assessment/Plan: Assessment/Plan: * Sepsis due to E coli bacteremia of urinary etiology: Continued clinical improvement. Blood cultures and urine cultures both show growth of E coli. Isolates are susceptible to fluoroquinolones. Will transition to oral ciprofloxacin to complete therapy given its excellent oral bioavailability. Plan 7 additional days of treatment. Side effects of fluoroquinolones including potential for tendinopathy or C difficile colitis were discussed. Follow-up in my office in 1 weeks time for ongoing assessment. Clinical findings and plan discussed with patient, and Dr. Lima. 10/23/17 13:36 10/23/17 13:37 10/23/17 13:38 Subjective: Patient feels significantly improved. No residual urinary symptoms. Objective: Vital Signs Temp Pulse Resp BP Pulse Ox 36.4 C 56 L 16 119/81 H 91 L 10/23/17 12:00 10/23/17 12:00 10/23/17 12:00 10/23/17 12:00 10/23/17 12:00 Laboratory Results 10/23/17 04:35 10/23/17 04:35 10/22/17 10/23/17 10/24/17 05:59 05:59 05:59 Intake Total 2704 700 Output Total 850 275 Balance 1854 425 Ceftriaxone #4 Blood and urine culture showing E coli susceptible to quinolones - Physical Exam General Appearance: alert, no apparent distress EENT: No scleral icterus Peripheral Pulses: 0: carotid (L) Abdomen: non-tender, No distended Back: No CVA tenderness Neuro/Psych: No confused ICD10 Worksheet Patient Problems: Problems Problem Status Onset Altered mental status Acute Compression fracture of T12 vertebra Acute Low back pain Acute UTI (urinary tract infection) Acute
[2017-10-23] MEDS ORDERED: CIPROFLOXACIN 500 MG TAB PO SCH (20:00)
--- NOTE | 2017-10-23 22:02 | GDS ---
[f rep st] DISCHARGE SUMMARY DISCHARGE DIAGNOSES: 1. Escherichia coli bacteremia. 2. Escherichia coli urinary tract infection. [facility]OSPITAL [employer] SUPERVISOR: Dr. Anthony Moncada. HISTORY OF PRESENT ILLNESS: The patient is a pleasant 77-year-old gentleman, with a history of demen tia and diabetes mellitus type 2, who presented to the [facility] Emergency Room on 10/20/2017, with complaints of confusion, altered mental status. He was found to have evidence of uri nary tract infection. Blood cultures were also positive for E coli which corresponded to his urine cu ltures. Patient was started on empiric IV treatment and, fortunately, did quite well. Dr. Moncada with I nfectious Disease was consulted on his case and, when his cultures were finalized, it was recommended to adjust his antibiotic therapy to ciprofloxacin orally for 7 additional days. The patient has not had any evidence of urinary tract infections in the past, but it did appear to be the source of his i nfections. Otherwise, patient did quite well and improved rather quickly and appears stable for disch arge home. HOSPITAL COURSE BY PROBLEM: 1. Sepsis, improved parameters with antibiotic therapy. 2. Bacteremia, E coli, susceptible to quinolone antibiotics. The patient will continue with ciproflo xacin 500 mg twice a day for 7 additional days. The patient will have [facility]. 3. Urinary tract infection. Patient's urine culture grew E coli as well. No prior history of any uri nary tract infections in the past. 4. Encephalopathy, resolved. Patient appeared to be at his baseline mental status at the time of dis charge. 5. Acute hypoxic respiratory failure. This is also resolved. Patient is satting within normal limits on room air today. 6. Dementia, stable. Patient was continued on Aricept, although I advised in a discussion with his p harmacist today to hold this for the 7 days while taking ciprofloxacin. 7. Diabetes mellitus, type 2. No changes were made during this hospitalization to his diabetes treat ment regimen. 8. Esophageal reflux. He was continued on proton pump inhibitor. 9. Deep venous thrombosis prophylaxis. Patient was on Lovenox during this hospitalization. NOTABLE STUDIES: 1. Urine culture from 10/20/2017 showed E coli susceptible to Levaquin. 2. Blood cultures from 10/20/2017 show also E coli susceptible to Levaquin. 3. CBC on day of discharge: White blood cell count of 6, hemoglobin 13, platelets 146. Sodium 142, p otassium 4.0, chloride 107, bicarb 26, BUN 14, creatinine of 0.9, glucose of 96. DISCHARGE MEDICATIONS: 1. Atorvastatin 10 mg daily. 2. Vitamin D supplementation 5000 international units daily. 3. Ciprofloxacin 500 mg twice a day for 7 additional days. 4. Aricept 5 mg daily, to hold while taking ciprofloxacin. 5. Trulicity 1.5 mg weekly. 6. Nexium 40 mg daily. 7. Zetia 10 mg daily. 8. Ferrous sulfate 325 mg daily, to be held while taking ciprofloxacin. 9. Metformin 1000 mg twice a day. 10. Actos 45 mg daily. 11. Ramipril 2.5 mg daily. 12. Januvia 100 mg daily. DISCHARGE INSTRUCTIONS: Followup visit with Dr. Moncada is recommended in 1 week's time. Also recommend keeping a followup visit with his primary provider in 1-2 weeks' time for reassessment as well. 35 minutes of time dedicated to discharge efforts. /[id number]/MODL
== END 2017-10-23 12:58 | disposition home or self-care (01) | DRG 871 ==
LOC: EDUNIT# → OBSVTOIN 20:50 → F3E 22:22
PROVIDERS: ADMIT Family Medicine; ATTEND Family Medicine
DX: A41.51 Sepsis due to Escherichia coli [E. coli] (principal); G93.41 Metabolic encephalopathy; J96.01 Acute respiratory failure with hypoxia; N39.0 Urinary tract infection, site not specified; F03.90 Unspecified dementia, unspecified severity, without behavioral disturbance, psychotic disturbance, mood disturbance, and anxiety; E11.9 Type 2 diabetes mellitus without complications; K21.9 Gastro-esophageal reflux disease without esophagitis; Z86.14 Personal history of Methicillin resistant Staphylococcus aureus infection
CPT/HCPCS: 96365; 97161-GP; G8978-GP-CI; G8979-GP-CI; G8980-GP-CI; J0696; J1650; J2405; J3475; J3480

== ENCOUNTER → 2018-04-04 | Outpatient (CLI) | payer OTHER | LOC: FIMAGING 15:22 | PROVIDERS: ATTEND Orthopaedic Surgery | DX: Z01.818 Encounter for other preprocedural examination (principal); M16.11 Unilateral primary osteoarthritis, right hip ==

== ENCOUNTER → 2018-06-28 | Outpatient (CLI) | payer OTHER | LOC: FIMAGING 09:15 | PROVIDERS: ATTEND Orthopaedic Surgery | DX: M16.0 Bilateral primary osteoarthritis of hip (principal); M25.451 Effusion, right hip; M17.9 Osteoarthritis of knee, unspecified ==

== ENCOUNTER 2018-08-30 19:57 | Emergency (ER) | payer OTHER ==
[2018-08-30 20:10] VITALS: BP 134/79
[2018-08-30] MEDS ORDERED: PROPARACAINE 0.5% 15 ML OPHT DROP OP ONE (20:16)
[2018-08-30] MEDS ORDERED: FLUORESCEIN SODIUM 1 MG STRIP OP ONE (20:16)
--- NOTE | 2018-08-30 20:19 | EDPHY ---
H & P Time Seen by Provider: 08/30/18 20:13 HPI/ROS: CHIEF COMPLAINT: Right eye pain HISTORY OF PRESENT ILLNESS: 78-year-old male history of daily contact lens use was seen by his imaging account manager earlier today for an annual examination, a contact lens was a partially removed by his imaging account manager however apparently was torn and a no other contact lens was placed. Patient went home and few hours later complained of right eye pain with photophobia, was unable to remove the contact lens. No exposure to high speed projectiles. PHYSICAL EXAM (Prior to examination, patient consented to physical exam, hands were washed and my usual and customary physical exam procedures followed) 1) GENERAL: Well-developed, well-nourished, alert and oriented. Appears uncomfortable, sitting in a darkened room. 2) HEAD: Normocephalic 3) OCULAR EXAM: Pupils:equal round and reactive to light EOMI Lids: no edema or swelling, upper and lower lids were everted and no foreign bodies were visualized, no areas of increased fluorescein uptake. Skin: no proptosis, no periorbital erythema or swelling, no vesicles, no pain with extraocular movements. Conjunctivae: not injected, no discharge, negative Jalen test. Cornea: A contact lens was removed by myself, intact, no missing or torn elements. No other pieces of contact lens or foreign bodies were visualized. exam with fluorescein shows an area of increased uptake consistent with corneal abrasion at the 7 o'clock position . Tonometry is 14 . I do not visualize any further Anterior chamber:normal, no hyphema or hypopyon 4) LUNGS: Breathing comfortably. 5) SKIN: Facial and periorbital skin is unremarkable. Smoking Status: Never smoked Constitutional: Initial Vital Signs Temperature (C) 36.8 C 08/30/18 20:08 Heart Rate 65 08/30/18 20:08 Respiratory Rate 17 08/30/18 20:08 Blood Pressure 134/79 H 08/30/18 20:08 O2 Sat (%) 94 08/30/18 20:08 O2 Delivery Mode Room Air Allergies/Adverse Reactions: Sulfa (Sulfonamide Antibiotics) Allergy (Verified 08/30/18 20:02) hives and throat swelling Home Medications: Medication Instructions Recorded Ascorbic Acid [Vitamin C 500 mg 500 mg PO DAILY 06/20/13 (*)] Atorvastatin Calcium [Lipitor 10 10 mg PO DAILY 06/20/13 mg (*)] Cyanocobalamin [Vitamin B12 (*)] 2,500 mcg PO DAILY 06/20/13 Donepezil HCl [Aricept 5 MG (*)] 5 mg PO DAILY 06/20/13 ESOMEPRAZOLE MAG TRIHYDRATE 40 mg PO DAILY 06/20/13 [NEXIUM] Herbals/Supplements -Info Only 1 each PO AD 06/20/13 Pioglitazone HCl [Actos] 45 mg PO DAILY 06/20/13 Ramipril [Altace 2.5mg (*)] 2.5 mg PO DAILY 06/20/13 Cholecalciferol Vit D3 [Vitamin D3 5,000 units PO DAILY 10/20/17 (*)] Dulaglutide [Trulicity] 1.5 mg SC MO@08 10/20/17 Ezetimibe [Zetia 10 MG (*)] 10 mg PO DAILY 10/20/17 Magnesium Oxide [Magnesium Oxide 400 mg PO BID 10/20/17 400 mg (*)] Meclizine HCl [Meclizine HCl 25 mg 25 mg PO DAILY 10/20/17 (RX,OTC)] Metformin HCl [Metformin 1000 mg] 500 mg PO BID 10/20/17 Multivitamins [Multivitamin (*)] 1 each PO DAILY 10/20/17 Ferrous Sulfate [Ferrous Sulf 325 325 mg PO DAILY #0 10/23/17 MG (*)] ED Images - Head Eyes Right/Left: 1 - Abrasion MDM/Departure - MDM Medications Given: Discontinued Medications Hydrocodone Bitart/Acetaminophen ([place] 5/325mg Prepack#6) 1 btl TAKEHOME EDNOW ONE Stop: 08/30/18 20:39 Last Admin: 08/30/18 20:52 Dose: 1 btl Fluorescein Sodium (Bioglo) 1 mg OP EDNOW ONE Stop: 08/30/18 20:17 Last Admin: 08/30/18 20:52 Dose: 1 mg Ofloxacin (Ocuflox 0.3% Opht Drops Prepack) 1 btl TAKEHOME EDNOW ONE Stop: 08/30/18 20:39 Last Admin: 08/30/18 20:53 Dose: 1 btl Proparacaine HCl (Alcaine 0.5%) 1 drops OP EDNOW ONE Stop: 08/30/18 20:17 Last Admin: 08/30/18 20:50 Dose: 1 dose ED Course/Re-evaluation: Patient has evidence of right corneal abrasion. Doubt acute closed angle glaucoma. Have recommended antibiotic drops, analgesia, follow up with Ophthalmology tomorrow. He feels comfortable being discharged. Patient feels comfortable being discharged. All questions and concerns addressed by myself. Patient given my usual and customary discharge precautions and instructions regarding their clinical impression. Care of patient under supervision of secondary supervising physician Dr Dunlap . - Depart Disposition: Home, Routine, Self-Care Clinical Impression: Contact lens stuck Corneal abrasion Qualifiers: Encounter type: initial encounter Laterality: right Qualified Code(s): S05.01XA - Injury of conjunctiva and corneal abrasion without foreign body, right eye, initial encounter Condition: Good Instructions: Hydrocodone/Acetaminophen (By mouth), Ofloxacin (Into the eye), Corneal Abrasion (ED) Additional Instructions: Do not a contact lens in to URI until cleared by your riveter portable machine Referrals: Louis Otero MD [Medical Doctor] - 1 day without fail
[2018-08-30] MEDS ORDERED: HYDROCOD/APAP 5/325 PREPACK#6 BTL TAKEHOME ONE (20:38)
[2018-08-30] MEDS ORDERED: OFLOXACIN 0.3% SOLN PREPACK OPHT.BTL TAKEHOME ONE (20:38)
== END 2018-08-30 21:01 | disposition home or self-care (01) ==
DX: H18.821 Corneal disorder due to contact lens, right eye (principal)

== ENCOUNTER → 2018-11-02 | Outpatient (CLI) | payer OTHER | LOC: FIMAGING 14:33 | PROVIDERS: ATTEND Orthopaedic Surgery | DX: M16.0 Bilateral primary osteoarthritis of hip (principal); M25.451 Effusion, right hip; M51.36 Other intervertebral disc degeneration, lumbar region; M53.3 Sacrococcygeal disorders, not elsewhere classified ==

== ENCOUNTER 2018-11-23 05:36 | Inpatient (IN) | payer OTHER ==
[2018-11-23] MEDS ORDERED: DEXAMETHASONE 4 MG/ML VIAL IVP ONE (05:48)
[2018-11-23] MEDS ORDERED: ceFAZolin 2 GM/DEXTROSE 100 ML IV ONE (05:48)
[2018-11-23] MEDS ORDERED: ACETAMINOPHEN 325 MG TAB PO ONE (05:48)
[2018-11-23] MEDS ORDERED: FAMOTIDINE 20 MG TAB PO ONE (05:48)
[2018-11-23] MEDS ORDERED: LR 1,000 ML IV ONE (05:50)
[2018-11-23] MEDS ORDERED: ROPIVACAINE 0.2% 80 MG, EPINEPHrine 0.2 MG, KETOROLAC TROMETHAMINE 30 MG in SYRINGE 0 ML IU ONE (06:00)
[2018-11-23] MEDS ORDERED: POVIDONE-IODINE 20 ML in SODIUM CL IRRIG SOLUTION 500 ML IRR ONE (06:00)
[2018-11-23] MEDS ORDERED: TRANEXAMIC ACID 1,000 MG in NS 100 ML IV ONE (06:00)
[2018-11-23] MEDS ORDERED: MIDAZOLAM 2 MG/2 ML VIAL IVP ONE (07:37)
--- NOTE | 2018-11-23 07:41 | PDANEPAE ---
ANE History of Present Illness 78 year old with hip arthritis ANE Past Medical History - Cardiovascular History Hx Hypertension: No Hx Arrhythmias: No Hx Chest Pain: No Hx Coronary Artery / Peripheral Vascular Disease: No Hx CHF / Valvular Disease: No Hx Palpitations: No Cardiovascular History Comment: high chol. hx of syncope and was worked up by [facility] - Pulmonary History Hx COPD: No Hx Asthma/Reactive Airway Disease: No Hx Recent Upper Respiratory Infection: No Hx Oxygen in Use at Home: No Hx Sleep Apnea: No Sleep Apnea Screening Result - Last Documented: Positive - Neurologic History Hx Cerebrovascular Accident: No Hx Seizures: No Hx Dementia: No Neurologic History Comment: balance/ gait issue- unknown reasons - Endocrine History Hx Diabetes: Yes Endocrine History Comment: type 2 - Renal History Hx Renal Disorders: Yes Renal History Comment: bph. urgency - Liver History Hx Hepatic Disorders: No - Neurological & Psychiatric Hx Hx Neurological and Psychiatric Disorders: No - Cancer History Hx Cancer: No - Congenital Disorder History Hx Congenital Disorders: No - GI History Hx Gastrointestinal Disorders: Yes Gastrointestinal History Comment: GERD - Other Health History Other Health History: wears glasses. recently lost hearing aides. arthritis - Chronic Pain History Chronic Pain: Yes (right hip, left knee) - Surgical History Prior Surgeries: hernia repair. wrist surgery. knee surgery. foot surgery. left elbow surgery a few months ago. facial surgery in [place] [facility] ANE Review of Systems Review of systems is: negative Review of Systems: - Exercise capacity METS (RN): 3 METS ANE Patient History - Allergies Allergies/Adverse Reactions: Sulfa (Sulfonamide Antibiotics) Allergy (Verified 11/20/18 14:40) hives and throat swelling - Home Medications Home Medications: Ascorbic Acid [Vitamin C 500 mg (*)] 500 mg PO DAILY 06/20/13 [Last Taken ] Atorvastatin Calcium [Lipitor 10 mg (*)] 10 mg PO DAILY 06/20/13 [Last Taken ] Cyanocobalamin [Vitamin B12 (*)] 2,500 mcg PO DAILY 06/20/13 [Last Taken ] Donepezil HCl [Aricept 5 MG (*)] 5 mg PO DAILY 06/20/13 [Last Taken 11/19/18] ESOMEPRAZOLE MAG TRIHYDRATE [NEXIUM] 40 mg PO DAILY 06/20/13 [Last Taken ] Herbals/Supplements -Info Only 1 each PO AD 06/20/13 [Last Taken 11/19/18] Ramipril [Altace 2.5mg (*)] 2.5 mg PO DAILY 06/20/13 [Last Taken 11/19/18] Cholecalciferol Vit D3 [Vitamin D3 (*)] 5,000 units PO DAILY 10/20/17 [Last Taken 11/19/18] Dulaglutide [Trulicity] 1.5 mg SC MO@08 10/20/17 [Last Taken 11/20/18] Magnesium Oxide [Magnesium Oxide 400 mg (*)] 400 mg PO BID 10/20/17 [Last Taken 11/19/18] Meclizine HCl [Meclizine HCl 25 mg (RX,OTC)] 25 mg PO DAILY 10/20/17 [Last Taken 11/19/18] Multivitamins [Multivitamin (*)] 1 each PO DAILY 10/20/17 [Last Taken 11/19/18] Pioglitazone HCl [Actos] 30 mg PO DAILY 11/14/18 [Last Taken 11/19/18] metFORMIN HCL [Glucophage 500 mg (*)] 500 mg PO BIDMEAL 11/14/18 [Last Taken ] - NPO status NPO Since - Liquids (Date): 11/22/18 NPO Since - Liquids (Time): 21:30 NPO Since - Solids (Date): 11/22/18 NPO Since - Solids (Time): 05:00 - Anes Hx Anes Hx: no prior problems - Smoking Hx Smoking Status: Never smoked - Family Anes Hx Family Hx Anesthesia Complications: unknown ANE Labs/Vital Signs - Vital Signs Blood Pressure: 132/76 Heart Rate: 54 Respiratory Rate: 11 O2 Sat (%): 93 Height: 182.88 cm Weight: 70.307 kg ANE Physical Exam - Airway Neck exam: FROM Mallampati Score: Class 1 Mouth exam: normal dental/mouth exam - Pulmonary Pulmonary: no respiratory distress, clear to auscultation - Cardiovascular Cardiovascular: regular rate and rhythym - ASA Status ASA Status: II
--- NOTE | 2018-11-23 07:49 | PDHPUP ---
History & Physical Update H&P update statement: This history and physical update is based on an assessment of the patient which was completed after admission or registration (within 24 hours), but prior to the surgery/procedure. H&P update: H&P reviewed & patient examined, no change in patient's condition since H&P completed
[2018-11-23] MEDS ORDERED: BUPIVACAINE/EPI 0.5% 30 ML SDV ONE (09:50)
[2018-11-23] MEDS ORDERED: FAMOTIDINE 20 MG TAB ONE (10:13)
[2018-11-23] MEDS ORDERED: DEXAMETHASONE 4 MG/ML VIAL ONE (10:13)
[2018-11-23] MEDS ORDERED: ACETAMINOPHEN 325 MG TAB ONE (10:13)
[2018-11-23] MEDS ORDERED: CEFAZOLIN 1 GM/DEXTROSE/50 ML BAG IV ONE (10:39)
[2018-11-23] MEDS ORDERED: MIDAZOLAM 2 MG/2 ML VIAL ONE (11:14)
[2018-11-23] MEDS ORDERED: BUPIVACAINE 0.5% 30 ML SDV ONE (11:35)
[2018-11-23] MEDS ORDERED: fentaNYL 100 MCG/2 ML INJ ONE (11:43)
[2018-11-23] MEDS ORDERED: PROPOFOL/EMULSION 500 MG/50 ML BOTTLE IV ONE ×2 (11:43→13:49)
[2018-11-23] MEDS ORDERED: NALOXONE HCL 0.4 MG/ML INJ IVP PRN (13:48)
[2018-11-23] MEDS ORDERED: fentaNYL 100 MCG/2 ML INJ IVP PRN (13:48)
[2018-11-23] MEDS ORDERED: PROMETHAZINE HCL 25 MG/ML INJ IVP PRN ×2 (13:48→13:49)
[2018-11-23] MEDS ORDERED: LACTULOSE 20 GM/30 ML UDCUP PO PRN (13:49)
[2018-11-23] MEDS ORDERED: CYCLOBENZAPRINE 10 MG TAB PO PRN (13:49)
[2018-11-23] MEDS ORDERED: POLYETHYLENE GLYCOL 3350 17 GM PKT PO PRN (13:49)
[2018-11-23] MEDS ORDERED: MAGNESIUM HYDROXIDE 30 ML UDCUP PO PRN (13:49)
[2018-11-23] MEDS ORDERED: ONDANSETRON DISINTEGRATING 4 MG TAB PO PRN (13:49)
[2018-11-23] MEDS ORDERED: oxyCODONE IR 5 MG TAB PO PRN (13:49)
[2018-11-23] MEDS ORDERED: diphenhydrAMINE 25 MG CAP PO PRN (13:49)
[2018-11-23] MEDS ORDERED: PROMETHAZINE HCL 25 MG SUPPR PR PRN (13:49)
[2018-11-23] MEDS ORDERED: ONDANSETRON 4 MG/2 ML VIAL IVP PRN (13:49)
[2018-11-23] MEDS ORDERED: DIPHENOXYLATE/ATROPINE LOMOTIL 1 TAB PO PRN (13:49)
[2018-11-23] MEDS ORDERED: BISACODYL 10 MG SUPP PR PRN (13:49)
[2018-11-23] MEDS ORDERED: TEMAZEPAM 15 MG CAP PO PRN (13:49)
[2018-11-23] MEDS ORDERED: METOCLOPRAMIDE 10 MG/2 ML VIAL IVP PRN (13:49)
--- NOTE | 2018-11-23 13:49 | POSTANESTH ---
Post Anesthetic Evaluation Cardiovascular Status: Normal, Stable Respiratory Status: Normal, Stable Level of Consciousness/Mental Status: Moderately Sleepy Pain Control: Adequate, Prn Tx Ordered Nausea/Vomiting Control: Adequate, Prn Tx Ordered Complications Possibly Related to Anesthesia: None Noted
--- NOTE | 2018-11-23 13:55 | POSTOPPROG ---
Post Op Note Date of Operation: 11/23/18 Surgeon: James Meraz Spanish Speaking Babysitter: TRICIA Segovia Anesthesiologist: MD Marvin Anesthesia: IV Sedation, Spinal Pre-op Diagnosis: Right hip OA Post-op Diagnosis: same Procedure: R hip ant BELL with SHAVON Inf/Abcess present in the surg proc area at time of surgery?: No EBL: 100-500 (300) Drains: Hemovac
[2018-11-23] MEDS ORDERED: LR 1,000 ML IV SCH (14:00)
--- NOTE | 2018-11-23 14:42 | PDMN ---
Medical Necessity Medical necessity: [facility] IP only surgery; CPT 32292 R BELL
--- NOTE | 2018-11-23 15:40 | SOAPPROG ---
SOAP Progress Note Assessment/Plan: Assessment: s/p right total hip arthroplasty, anterior approach, with Dr. Meraz - procedure earlier today Plan: Begin d/c planning - likely home tomorrow, will have support from his and daughters Continue oral pain medication - oxycodone, tylenol Continue VTE ppx - aspirin 325 mg BID, SCDs, VARGHESE hose No celebrex due to sulfa allergy IS 10 times per hour Subjective: Patient states he feels very good, there is no pain secondary to the spinal. He is hoping to go home tomorrow. His and daughters are present in the room and they will help care for him post-operatively. No major complaints or concerns at this time. He denies SOB, CP, fever, chills, tingling. He does notice numbness in his legs still due to the spinal. Objective: Vital Signs Temp Pulse Resp BP Pulse Ox 36.4 C 54 L 14 104/62 98 11/23/18 15:28 11/23/18 15:28 11/23/18 15:28 11/23/18 15:28 11/23/18 15:28 11/22/18 11/23/18 11/24/18 05:59 05:59 05:59 Intake Total 1750 Output Total 200 Balance 1550 Patient resting in bed. No acute distress. Easy nonlabored breathing. RLE: Anterior hip dressing is clean, dry and intact. No erythema, drainage or signs of infection. Drain is in place. Thigh and calf compartments are soft and compressible. No calf tenderness. Motor intact at EHL, FHL, tibialis anterior, gastric and soleus. He notes numbness in his feet secondary to the spinal. Palpable DP and PT pulses. ICD10 Worksheet Patient Problems: Problems Problem Status Onset Osteoarthritis of right hip Acute Low back pain Chronic
[2018-11-23] MEDS: metFORMIN HCL 500 MG TAB PO SCH ×2 (17:17)
[2018-11-23] MEDS: PIOGLITAZONE HCL 15 MG TAB PO SCH (17:33)
[2018-11-23] MEDS: PANTOPRAZOLE SODIUM 40 MG TAB PO SCH (17:34)
[2018-11-23] MEDS: ASCORBIC ACID 500 MG TAB PO SCH (19:34)
[2018-11-23] MEDS: DONEPEZIL HCL 5 MG TAB PO SCH (19:35)
[2018-11-23] MEDS: CYANO/VITAMIN B12 1000 MCG TAB PO SCH (19:35)
[2018-11-23] MEDS: ATORVASTATIN CALCIUM 10 MG TAB PO SCH (19:35)
[2018-11-23] MEDS: CHOLECALCIFEROL VIT D3 1,000 UNITS TAB PO SCH (19:35)
[2018-11-23] MEDS: MECLIZINE HCL 25 MG TAB PO SCH (19:36)
[2018-11-23] MEDS: FERROUS SULFATE 325 MG TAB PO SCH (19:36)
[2018-11-23] MEDS: MAGNESIUM OXIDE 400 MG TAB PO SCH ×2 (19:36→20:40)
[2018-11-23] MEDS: MULTIVITAMINS 1 EACH TAB PO SCH (19:36)
[2018-11-23] MEDS: RAMIPRIL 2.5 MG CAP PO SCH (19:39)
[2018-11-23] MEDS: ASPIRIN 81 MG CHEWABLE TAB PO SCH (20:39)
[2018-11-23] MEDS: ACETAMINOPHEN 325 MG TAB PO SCH (20:39)
[2018-11-23] MEDS: ceFAZolin 2 GM/DEXTROSE 100 ML IV SCH (20:40)
[2018-11-23] MEDS: FAMOTIDINE 20 MG TAB PO SCH (20:41)
[2018-11-23] MEDS: SENNOSIDES/DOCUSATE SODIUM TAB PO SCH (20:41)
[2018-11-24] MEDS: ceFAZolin 2 GM/DEXTROSE 100 ML IV SCH (02:53)
[2018-11-24] MEDS: ACETAMINOPHEN 325 MG TAB PO SCH ×2 (02:53→08:29)
--- NOTE | 2018-11-24 06:25 | SOAPPROG ---
SOAP Progress Note Assessment/Plan: Assessment: 78-year-old male postop day 1 status post right anterior approach total hip arthroplasty MAKOplasty robotic assistance Plan: Weight-bearing as tolerated, PT/OT with assistance DVT prophylaxis: SCDs, Jone Hose, aspirin 81 mg twice daily Incentive spirometry 10 times per hour Analgesics: Oxycodone or Tylenol, wean off narcotics as tolerated Disposition: Home today after physical therapy 11/24/18 06:23 Subjective: No acute events. Pain rated at 0/10. Denies fevers chills nausea vomiting chest pain shortness of breath numbness tingling or weakness. Objective: Vital Signs Temp Pulse Resp BP Pulse Ox 36.8 C 54 L 12 112/63 96 11/24/18 03:25 11/24/18 03:25 11/24/18 03:25 11/24/18 03:25 11/24/18 03:25 Laboratory Results 11/24/18 04:30 11/23/18 11/24/18 11/25/18 05:59 05:59 05:59 Intake Total 3425 Output Total 1560 Balance 1865 Awake alert and oriented x3 No acute distress Easy nonlabored breathing Right hip: Incision clean dry intact no erythema drainage or signs of infection Drain removed drain site clean dry and intact Thigh and calf compartments soft compressible Sensation intact to light touch L4-S1 Motor intact EHL FHL tibialis anterior gastrocsoleus Palpable DP PT pulses - Pending Discharge Pending Discharge Within 24 Hours: Yes Pending Discharge Date: 11/24/18 Pending Discharge Time: 11:00 ICD10 Worksheet Patient Problems: Problems Problem Status Onset Osteoarthritis of right hip Acute Low back pain Chronic
[2018-11-24] MEDS: ASPIRIN 81 MG CHEWABLE TAB PO SCH (08:28)
[2018-11-24] MEDS: CHOLECALCIFEROL VIT D3 1,000 UNITS TAB PO SCH (08:28)
[2018-11-24] MEDS: RAMIPRIL 2.5 MG CAP PO SCH (08:28)
[2018-11-24] MEDS: FAMOTIDINE 20 MG TAB PO SCH (08:28)
[2018-11-24] MEDS: FERROUS SULFATE 325 MG TAB PO SCH (08:28)
[2018-11-24] MEDS: MAGNESIUM OXIDE 400 MG TAB PO SCH (08:29)
[2018-11-24] MEDS: ASCORBIC ACID 500 MG TAB PO SCH (08:29)
[2018-11-24] MEDS: DONEPEZIL HCL 5 MG TAB PO SCH (08:29)
[2018-11-24] MEDS: PANTOPRAZOLE SODIUM 40 MG TAB PO SCH (08:29)
[2018-11-24] MEDS: MECLIZINE HCL 25 MG TAB PO SCH (08:29)
[2018-11-24] MEDS: MULTIVITAMINS 1 EACH TAB PO SCH (08:29)
[2018-11-24] MEDS: PIOGLITAZONE HCL 15 MG TAB PO SCH (08:30)
[2018-11-24] MEDS: ATORVASTATIN CALCIUM 10 MG TAB PO SCH (08:30)
[2018-11-24] MEDS: CYANO/VITAMIN B12 1000 MCG TAB PO SCH (08:30)
[2018-11-24] MEDS: metFORMIN HCL 500 MG TAB PO SCH (08:30)
[2018-11-24 08:35] VITALS: BP 126/77
[2018-11-24] MEDS: SENNOSIDES/DOCUSATE SODIUM TAB PO SCH (09:11)
--- NOTE | 2018-11-24 10:29 | PDDCSUM ---
Discharge Summary Discharge Summary: ADMISSION DIAGNOSIS: Right hip osteoarthritis DISCHARGE DIAGNOSIS: Right hip osteoarthritis PRINCIPAL PROCEDURE PERFORMED: Right total hip arthroplasty, posterior approach HPI: Patient is a 78 year old male who has end stage arthritis of his right hip. He has tried and failed conservative measures. Therefore, operative right total hip arthroplasty was recommended. HOSPITAL COURSE: Patient was admitted to the hospital on November 23, 2018 and right total hip arthroplasty, anterior approach, MAKOplasty robotic assistance was performed by Dr. Meraz. Patient tolerated the procedure well, was transferred to the PACU and then to the orthopedic floor. Post-operatively he was afebrile with stable vital signs. His neurovascular status, vital signs, hemoglobin and hematocrit were monitored daily. He participated in PT and OT and had good progress with ambulation and stairs. Patient is doing better than expected, therefore he was discharged on November 24, 2018. On the day of discharge his most recent H&H was 11.7/35.1. His right hip wound dressings are clean, dry and intact. Thigh and lower leg compartments are soft and nontender. Negative Homans sign bilaterally. He can actively DF and PF his right foot and great toe against resistance. Normal neurovascular examination. He denies shortness of breath, chest pain, fever, chills. Patient seems to be a good discharge candidate. He will be discharged home in stable condition and will have the support of his and daughters. DISPOSITION: Patient will begin PT within the next 2 weeks, anterior total hip precautions will be followed. He can WBAT as tolerated. Patient was given a prescription pre-operatively for oxycodone he will wean off narcotics as tolerated. Patient will leave the wound dressing in place and was instructed that he can shower but not submerge the right hip. He has an appointment to follow up with Dr. Meraz's office in approximately 2 weeks.
--- NOTE | 2018-11-24 13:30 | PDIAF ---
- Diagnosis Diagnosis: r hip OA Code Status: Full Code - Medication Management Discharge Medications: electronically signed and located in the Home Medication List. - Orders Services needed: Home Care, Physical Therapy, Occupational Therapy Home Care Face to Face: I certify that this patient was under my care and that I had the required [id number] encounter meeting the encounter requirements on the discharge day. My findings support the fact that the patient is homebound as defined in Home Care Face to Face Continued: CMS Chapter 7 Medicare Benefits Manual 30.1.1 , The condition of the patient is such that there exists a normal inability to leave home and consequently, leaving home would require a considerable and taxing effort. Isolation Type: None Diet Recommendation: no restrictions on diet Diet Texture: Regular Texture Diet Wound Care Instructions: leave dressing intact. May shower with water proof dressing but do not get incision wet Activity/Weight Bearing Restrictions: WBAT Additional Instructions: Weightbear as tolerated on right lower extremity Begin PT within the next 2 weeks, follow anterior total hip precautions Continue aspirin 81 mg twice per day x 3 weeks Oxycodone IR as needed for pain See Dr. Meraz's post-operative handout for further detail - Follow Up Care Current Providers and Referrals: James Meraz MD [Medical Doctor] - 12/08/18 10:15 am Monico Kwong MD [Primary Care Provider] -
--- NOTE | 2018-11-24 13:48 | ASDISCHSUM ---
Discharge Information Plan Status:Home with Home Health Medically Cleared to Leave: Discharge Date:11/24/2018 12:10 PM CM D/C Disposition: ADT D/C Disposition:Home, Routine, Self-Care Projected Discharge Date:11/24/2018 11:00 AM Transportation at D/C: Discharge Delay Reason: Follow-Up Date:11/24/2018 11:00 AM Discharge Slot: Final Diagnosis: Placement Information Referral Type:*Home Health Care Services Referral ID:[id number] Provider Name:[facility] Address 1:[address] [facility] [address] Phone Number: Address 2: Fax Number: City:[place] Selection Factors: State:[place] Patient Contact Information Contact Name:NAUN Relationship: Address:[address] City:[place] Alternate Phone: State/Zip Code:[place] [address] Email: Financial Information Financial Class:Medicare Primary Plan Desc:MEDICARE INPATIENT Primary Plan Number:[id number] Secondary Plan Desc:KELLY RUIZ INDEMNITY Secondary Plan Number:[id number] Assessment Information LACE LACE Length of stay for Answers: 2 days current admission Acuity / Level of Answers: Yes Care: Did the patient have an inpatient admission? Comorbidities - select Answers: Diabetes (uncontrolled or all that apply controlled) Opioid dependence / Chronic pain # of Emergency department Answers: 1-2 visits in the last 6 months Score: 11 Date Signed: 11/24/2018 01:45 PM Electronically Signed By:JULIA Alvarado [facility] CM Progress Note CM Note CM Note Notes: Pt had planned OA of hip. Pt resides with spouse Francy who can help at home. PT/OT rec home care, approves and inputs HC order. Pt chooses [facility] and Leeanna notified. Orders to be obtained via [employer]. Date Signed: 11/24/2018 01:47 PM Electronically Signed By:JULIA Alvarado Intervention Information
--- NOTE | 2018-11-24 13:48 | ASMTCMCOM ---
CM Note CM Note Notes: Pt had planned OA of hip. Pt resides with spouse Francy who can help at home. PT/OT rec home care, approves and inputs HC order. Pt chooses [facility] and Leeanna notified. Orders to be obtained via [employer]. Date Signed: 11/24/2018 01:47 PM Electronically Signed By:JULIA Alvarado
[2018-11-27] MEDS ORDERED: Dulaglutide [Trulicity] 1.5 MG SC SCH (08:00)
--- NOTE | 2018-11-28 14:25 | GOP ---
[f rep st] OPERATIVE REPORT DATE OF OPERATION: 11/23/2018 SURGEON: James Meraz MD [employer]ARK[employer]AMP ATTENDANT: Yuri Segovia CSA. Cra was required for the procedure due to complexity of the ca se and patient's condition, for positioning, prepping, draping, retraction, closure. ANESTHESIA: Spinal and IV sedation. PREOPERATIVE DIAGNOSIS: Right hip osteoarthritis. POSTOPERATIVE DIAGNOSIS: Right hip osteoarthritis. PROCEDURE PERFORMED: FINDINGS: SPECIMENS: Femoral head x1. ESTIMATED BLOOD LOSS: 300 cc. DESCRIPTION OF PROCEDURE: The patient was seen in the holding area. Operative consent and extremity were signed. The patient is then taken TO the operating room. After smooth induction of spinal ane sthesia and sedation, he was placed in the supine position on the operating table with an arch table extension. Hip and contralateral iliac crest were prepped and draped in the usual sterile fashion. Operative site was confirmed by signature, time-out performed. Allergies reviewed. Antibiotics and TXA were administered. 3 pins were placed in contralateral iliac crest. Pelvic array was fixed. It was well visualized by the robot. Desired incision for the anterior approach to the hip was infiltr ated with 0.25% Marcaine with epinephrine. Incision was made with a 10 blade, carried through subcut aneous tissue to identify the TFL fascia. This was incised in line with the incision and the TFL was retracted laterally. Lateral femoral circumflex vessels were coagulated with Aquamantys. The deep TFL fascia was incised and vastus lateralis was clearly exposed. The pre-capsular fat was excised. A T-shaped capsulotomy was performed. The capsule was preserved for later closure. The femoral neck cut was then performed based on pre-templated calculations and imaging. The femoral head was excise d with a corkscrew. The acetabulum was exposed in standard fashion and the labrum pulvinar soft tiss ues were sharply excised. Pelvic checkpoint was then placed in the AIIS. Acetabular registration wa s performed using the robot. Reaming was then performed using the robot to desired size. Cup was im pacted in place again with robotic guidance system. Good fixation was achieved. The cup was irrigat ed and dried, and the liner was impacted into place achieving good locking within the cup. The femur was then exposed in standard fashion. The femur was broached to the desired size. Trial neck and h ead were attached, and the hip was relocated. Position of all components was confirmed fluoroscopica lly. The foot was externally rotated 90 degrees, taken then to the floor, and stability was again co nfirmed. The hip was then dislocated. Femoral trial components were removed. The stem was impacted into place. The trunnion was cleaned and dried, and the head was impacted down onto the trunnion. The wound was copiously irrigated including the cup with pulse lavage and the hip was once again relo cated. Component placement was confirmed with fluoroscopy. All checkpoints were removed. The pelvic array was also removed. The wound was copiously irrigated with sterile solution. Dilute Betadine solution was then irrigated into the wound. Allowed to soak for 3 minutes before being irrigated out. Joint cocktail was injected in the soft tissue capsule and indirect head of the rectus femoris was repaired with #1 Vicryl sutures. The drain was placed exiti ng distal and laterally from deep to TFL. The wound was closed in layers with 0 Quill in the TFL fas zak and deep subcutaneous fat, 3-0 Versalok in the dermis. The wound was dressed with sterile dressi ngs. Patient was safely awakened, taken to recovery room in stable condition. All critical portions of the procedure performed by myself, Dr. Meraz. This operative note was created by myself, and I was immediately available for emergency cross-coverage at all times. PROCEDURE PERFORMED: Right hip anterior approach hip replacement with MAKOplasty robotic guidance, f luoroscopic supervision greater than 1 hour. SURGEON: James Meraz MD. DRAINS: Hemovac x1. COMPLICATIONS: None. IMPLANTS: Includes a Michi Trident 2, cluster hole acetabular shell, size 54 with a 0-degree, 36 m m polyethylene liner, Michi Accolade 2, size 7 stem, 127 degree offset; 36 mm -5 mm head. INDICATIONS FOR PROCEDURE: Patient has severe hip osteoarthritis that failed to improve with conserv ative measures, significantly affecting activities of daily living, including walking. The patient e lected to proceed with anterior approach hip replacement using MAKOplasty robotic guidance. After ex tensive discussion of all possible approaches as well as risks, benefits, pros, cons, expected recove ry and prognosis, the patient verbalized understanding of the risks and benefits of procedure and sig brittany informed consent prior to the procedure. /[id number]/MODL
== END 2018-11-24 12:10 | disposition home health service (06) | DRG 470 ==
LOC: F3N 05:36
PROVIDERS: ADMIT Orthopaedic Surgery; ATTEND Orthopaedic Surgery
DX: M16.11 Unilateral primary osteoarthritis, right hip (principal); E78.00 Pure hypercholesterolemia, unspecified; K21.9 Gastro-esophageal reflux disease without esophagitis; N40.0 Benign prostatic hyperplasia without lower urinary tract symptoms
CPT/HCPCS: 97116-GP; 97161-GP; 97165-GO; 97535-GO; J0171; J0690; J1100; J1885; J2250; J2704; J2795; J3010